=== PATIENT | male | born 1995 | race Caucasian/White ===

== ENCOUNTER 2017-10-15 09:43 | Emergency (ER) | payer SELFPAY ==
[2017-10-15] MEDS: ONDANSETRON (ODT) 4 MG TAB ODT (10:22)
[2017-10-15] MEDS: IBUPROFEN 200 MG TAB PO (10:22)
[2017-10-15] MEDS: HYDROCODONE/APAP (5/325) TAB PO (10:23)
== END 2017-10-15 12:51 | disposition home or self-care (01) ==
LOC: FTE 09:43
DX: S82.042A Displaced comminuted fracture of left patella, initial encounter for closed fracture (principal); S92.322A Displaced fracture of second metatarsal bone, left foot, initial encounter for closed fracture; S92.331A Displaced fracture of third metatarsal bone, right foot, initial encounter for closed fracture; V49.40XA Driver injured in collision with unspecified motor vehicles in traffic accident, initial encounter
CPT/HCPCS: 29505; 73550; 73562; 73630; 73630-LT; 99284-25